=== PATIENT | female | born 1965 | race African-American/Black ===

== ENCOUNTER 2018-09-13 20:55 | Emergency (ER) | payer OTHER ==
[2018-09-13 23:55] LABS: ADD MAN DIFF? NO
[2018-09-14 00:03] LABS: BASOPHILS % 0.3 % (0.0-2.0); EOSINOPHILS # 0.3 10^3/ul (0.0-0.5); EOSINOPHILS % 3.8 % (0.0-7.0); HEMATOCRIT 38.5 % (37.0-47.0); HEMOGLOBIN 11.9 g/dl (12.0-16.0); LYMPHOCYTES # 2.5 10^3/ul (0.8-2.9); LYMPHOCYTES % 36.8 % (15.0-51.0); MEAN CORPUSCULAR HEMOGLOBIN 23.8 pg (29.0-33.0); MEAN CORPUSCULAR HGB CONC 30.9 g/dl (32.0-37.0); MEAN CORPUSCULAR VOLUME 76.8 fl (82.0-101.0); MEAN PLATELET VOLUME 9.1 fl (7.4-10.4); MONOCYTE # 0.7 10^3/ul (0.3-0.9); MONOCYTES % 9.8 % (0.0-11.0); NEUTROPHIL # 3.4 10^3/ul (1.6-7.5); NEUTROPHILS % 49.2 % (39.0-77.0); PLATELET COUNT 268 10^3/UL (140-415); RED BLOOD COUNT 5.01 10^6/ul (4.20-5.40); RED CELL DISTRIBUTION WIDTH 16.8 % (11.5-14.5)
[2018-09-14 00:03] LABS: WHITE BLOOD COUNT 6.9 10^3/ul (4.8-10.8)
[2018-09-14 00:27] LABS: ANION GAP 8 (5-13); BLOOD UREA NITROGEN 12 mg/dl (7-20); CALCIUM 9.6 mg/dl (8.4-10.2); CARBON DIOXIDE 26 mmol/L (21-31); CHLORIDE 106 mmol/L (97-110); CREATININE 0.59 mg/dl (0.44-1.00); Estimated GFR > 60 mL/min (>60); GLUCOSE 120 mg/dl (70-220); POTASSIUM 3.9 mmol/L (3.5-5.1); SODIUM 140 mmol/L (135-144)
[2018-09-14 00:38] LABS: TROPONIN-I < 0.012 ng/ml (0.000-0.120)
== END 2018-09-14 01:20 | disposition home or self-care (01) ==
LOC: E/R 20:55
DX: R07.9 Chest pain, unspecified (principal); I10 Essential (primary) hypertension; D50.9 Iron deficiency anemia, unspecified
CPT/HCPCS: 36415; 71045; 80048; 84484; 85025; 93005; 99285-25

== ENCOUNTER 2019-02-14 05:44 | Emergency (ER) | payer OTHER ==
[2019-02-14] MEDS: LIDOCAINE/MYLANTA 40 ML BTL PO ×2 (06:23→06:38)
[2019-02-14] MEDS: SOD CHLORIDE 0.9% 1,000 ML IV (06:35)
[2019-02-14] MEDS: ONDANSETRON 4 MG INJ IV (06:35)
[2019-02-14] MEDS: BELLADONNA/PHENOBARBITAL TAB PO (06:36)
[2019-02-14] MEDS: KETOROLAC 15 MG INJ IV (06:36)
[2019-02-14 06:53] LABS: ADD MAN DIFF? NO
[2019-02-14 06:54] LABS: WHITE BLOOD COUNT 9.5 10^3/ul (4.8-10.8)
[2019-02-14 06:54] LABS: BASOPHILS % 0.2 % (0.0-2.0); EOSINOPHILS % 0.3 % (0.0-7.0); HEMATOCRIT 39.7 % (37.0-47.0); HEMOGLOBIN 12.4 g/dl (12.0-16.0); LYMPHOCYTES # 1.9 10^3/ul (0.8-2.9); LYMPHOCYTES % 20.1 % (15.0-51.0); MEAN CORPUSCULAR HEMOGLOBIN 24.3 pg (29.0-33.0); MEAN CORPUSCULAR HGB CONC 31.2 g/dl (32.0-37.0); MEAN CORPUSCULAR VOLUME 77.7 fl (82.0-101.0); MONOCYTE # 0.9 10^3/ul (0.3-0.9); MONOCYTES % 9.8 % (0.0-11.0); NEUTROPHIL # 6.5 10^3/ul (1.6-7.5); NEUTROPHILS % 69.2 % (39.0-77.0); PLATELET COUNT 304 10^3/UL (140-415); RED BLOOD COUNT 5.11 10^6/ul (4.20-5.40); RED CELL DISTRIBUTION WIDTH 17.9 % (11.5-14.5)
[2019-02-14 07:02] LABS: ADD UMIC YES; UR ASCORBIC ACID NEGATIVE (NEGATIVE); UR BACTERIA FEW /HPF (NONE SEEN); UR BILIRUBIN (Dip) NEGATIVE (NEGATIVE); UR BLOOD (Dip) 2+ mg/dL (NEGATIVE); UR CLARITY CLOUDY (CLEAR); UR COLOR YELLOW (YELLOW); UR GLUCOSE (Dip) NEGATIVE (NEGATIVE); UR KETONES (Dip) 2+ mg/dL (NEGATIVE); UR LEUKOCYTE ESTERASE (Dip) NEGATIVE Leu/ul (NEGATIVE); UR MUCUS FEW /HPF (NONE SEEN); UR NITRITE (Dip) NEGATIVE (NEGATIVE); UR RBC 6 /HPF (0-5); UR SPECIFIC GRAVITY (Dip) 1.023 (1.003-1.030); UR SQUAMOUS EPITHELIAL CELL MODERATE /HPF (FEW); UR TOTAL PROTEIN (Dip) 1+ mg/dl (NEGATIVE); UR UROBILINOGEN (Dip) 2+ mg/dL (NEGATIVE); UR WBC 5 /HPF (0-5)
[2019-02-14 07:15] LABS: ALANINE AMINOTRANSFERASE 15 IU/L (13-69); ALBUMIN 4.2 g/dl (3.3-4.9); ALBUMIN/GLOBULIN RATIO 1.07; ALKALINE PHOSPHATASE 80 IU/L (42-121); ANION GAP 14 (5-13); ASPARTATE AMINO TRANSFERASE 15 IU/L (15-46); BILIRUBIN,INDIRECT 0.5 mg/dl (0-1.1); BILIRUBIN,TOTAL 0.5 mg/dl (0.2-1.3); BLOOD UREA NITROGEN 6 mg/dl (7-20); CALCIUM 9.1 mg/dl (8.4-10.2); CARBON DIOXIDE 26 mmol/L (21-31); CHLORIDE 102 mmol/L (97-110); CREATININE 0.49 mg/dl (0.44-1.00); Estimated GFR > 60 mL/min (>60); GLUCOSE 136 mg/dl (70-220); LIPASE 60 U/L (23-300); POTASSIUM 3.2 mmol/L (3.5-5.1); SODIUM 142 mmol/L (135-144); TOTAL PROTEIN 8.1 g/dl (6.1-8.1)
[2019-02-14 07:26] LABS: TROPONIN-I < 0.012 ng/ml (0.000-0.120)
== END 2019-02-14 08:28 | disposition home or self-care (01) ==
LOC: E/R 05:44
DX: R10.84 Generalized abdominal pain (principal); I10 Essential (primary) hypertension; E66.9 Obesity, unspecified; Z68.33 Body mass index [BMI] 33.0-33.9, adult
CPT/HCPCS: 36415; 80053; 81001; 83690; 84484; 85025; 96374; 96375; 99284-25

== ENCOUNTER 2019-02-16 17:48 | Inpatient (IN) | payer OTHER ==
[2019-02-16 18:46] LABS: ADD MAN DIFF? NO
[2019-02-16 18:48] LABS: BASOPHILS % 0.2 % (0.0-2.0); EOSINOPHILS % 0.2 % (0.0-7.0); HEMATOCRIT 30.3 % (37.0-47.0); HEMOGLOBIN 9.3 g/dl (12.0-16.0); LYMPHOCYTES # 1.6 10^3/ul (0.8-2.9); LYMPHOCYTES % 11.5 % (15.0-51.0); MEAN CORPUSCULAR HEMOGLOBIN 23.8 pg (29.0-33.0); MEAN CORPUSCULAR HGB CONC 30.7 g/dl (32.0-37.0); MEAN CORPUSCULAR VOLUME 77.7 fl (82.0-101.0); MEAN PLATELET VOLUME 8.7 fl (7.4-10.4); MONOCYTE # 1.1 10^3/ul (0.3-0.9); MONOCYTES % 7.9 % (0.0-11.0); NEUTROPHIL # 11.2 10^3/ul (1.6-7.5); NEUTROPHILS % 79.6 % (39.0-77.0); PLATELET COUNT 266 10^3/UL (140-415); RED CELL DISTRIBUTION WIDTH 17.3 % (11.5-14.5)
[2019-02-16 18:48] LABS: WHITE BLOOD COUNT 14.1 10^3/ul (4.8-10.8)
[2019-02-16 19:07] LABS: ALANINE AMINOTRANSFERASE 17 IU/L (13-69); ALBUMIN 3.2 g/dl (3.3-4.9); ALBUMIN/GLOBULIN RATIO 0.96; ALKALINE PHOSPHATASE 47 IU/L (42-121); ANION GAP 9 (5-13); ASPARTATE AMINO TRANSFERASE 14 IU/L (15-46); BILIRUBIN,INDIRECT 0.3 mg/dl (0-1.1); BILIRUBIN,TOTAL 0.3 mg/dl (0.2-1.3); BLOOD UREA NITROGEN 26 mg/dl (7-20); CARBON DIOXIDE 29 mmol/L (21-31); CHLORIDE 105 mmol/L (97-110); Estimated GFR > 60 mL/min (>60); GLUCOSE 164 mg/dl (70-220); INR 1.06; PARTIAL THROMBOPLASTIN TIME 21.9 Sec (23.0-35.0); POTASSIUM 3.2 mmol/L (3.5-5.1); PROTIME 13.9 Sec (11.9-14.9); PT RATIO 1.1; SODIUM 143 mmol/L (135-144); TOTAL PROTEIN 6.5 g/dl (6.1-8.1)
[2019-02-16 19:17] LABS: TROPONIN-I < 0.012 ng/ml (0.000-0.120)
[2019-02-16] MEDS: SOD CHLORIDE 0.9% 500 ML IV (19:35)
[2019-02-16] MEDS ORDERED: NITROGLYCERIN (SL) 0.4 MG TAB SL (21:30)
[2019-02-16] MEDS ORDERED: BISACODYL (EC) 5 MG TAB PO (21:30)
[2019-02-16] MEDS ORDERED: ACETAMINOPHEN 325 MG TAB PO ×2 (21:30)
[2019-02-16] MEDS ORDERED: NACL 0.9% 3 ML SYG IV (21:30)
[2019-02-16] MEDS ORDERED: DOCUSATE SODIUM 100 MG CAP PO (21:30)
[2019-02-16] MEDS ORDERED: ONDANSETRON 4 MG INJ IV (21:30)
[2019-02-16] MEDS: SOD CHLORIDE 0.9% 100 ML (21:37)
[2019-02-16] MEDS: IOHEXOL 300MG/ML 150 ML BTL (21:37)
[2019-02-16 21:53] LABS: MAGNESIUM 1.2 mg/dl (1.7-2.5)
[2019-02-16] MEDS: POTASSIUM CHLORIDE (SR) 20 MEQ TAB PO (21:58)
[2019-02-16] MEDS: SOD CHLORIDE 0.9% 1,000 ML IV (22:59)
[2019-02-16] MEDS ORDERED: IOHEXOL 14.3 MG(I)/ML (ADULT) BTL PO (23:30)
[2019-02-16] MEDS: morphine 2 MG INJ IV (23:58)
[2019-02-17] MEDS: SOD CHLORIDE 0.9% 100 ML (00:50)
[2019-02-17] MEDS: IOHEXOL 300MG/ML 150 ML BTL (00:50)
[2019-02-17] MEDS: MAGNESIUM SULFATE 3 GM in DEXTROSE 5% 100 ML IVPB (00:57)
[2019-02-17] MEDS: morphine 2 MG INJ IV ×3 (05:01→19:32)
[2019-02-17 06:26] LABS: ADD MAN DIFF? NO
[2019-02-17 06:32] LABS: WHITE BLOOD COUNT 11.5 10^3/ul (4.8-10.8)
[2019-02-17 06:32] LABS: BASOPHILS % 0.2 % (0.0-2.0); EOSINOPHILS % 0.3 % (0.0-7.0); HEMATOCRIT 27.1 % (37.0-47.0); HEMOGLOBIN 8.6 g/dl (12.0-16.0); LYMPHOCYTES # 2.1 10^3/ul (0.8-2.9); LYMPHOCYTES % 18.5 % (15.0-51.0); MEAN CORPUSCULAR HEMOGLOBIN 24.9 pg (29.0-33.0); MEAN CORPUSCULAR HGB CONC 31.7 g/dl (32.0-37.0); MEAN CORPUSCULAR VOLUME 78.6 fl (82.0-101.0); MONOCYTE # 0.9 10^3/ul (0.3-0.9); MONOCYTES % 7.7 % (0.0-11.0); NEUTROPHIL # 8.4 10^3/ul (1.6-7.5); PLATELET COUNT 272 10^3/UL (140-415); RED BLOOD COUNT 3.45 10^6/ul (4.20-5.40); RED CELL DISTRIBUTION WIDTH 17.3 % (11.5-14.5)
[2019-02-17 07:00] LABS: IRON 41 ug/dl (35-150)
[2019-02-17 07:07] LABS: HEMOGLOBIN A1C 5.8 % (0-5.9)
[2019-02-17 07:10] LABS: % IRON SATURATION 14 % SAT (22-52); ALANINE AMINOTRANSFERASE 13 IU/L (13-69); ALBUMIN 3.2 g/dl (3.3-4.9); ALKALINE PHOSPHATASE 54 IU/L (42-121); ANION GAP 8 (5-13); ASPARTATE AMINO TRANSFERASE 14 IU/L (15-46); BILIRUBIN,INDIRECT 0.3 mg/dl (0-1.1); BILIRUBIN,TOTAL 0.3 mg/dl (0.2-1.3); BLOOD UREA NITROGEN 17 mg/dl (7-20); CALCIUM 8.2 mg/dl (8.4-10.2); CARBON DIOXIDE 29 mmol/L (21-31); CHLORIDE 106 mmol/L (97-110); CHOL/HDL RATIO 4.3 RATIO; CHOLESTEROL 126 mg/dl (100-200); Estimated GFR > 60 mL/min (>60); GLUCOSE 128 mg/dl (70-220); HDL CHOLESTEROL 29 mg/dl (37-92); LDL CHOLESTEROL,CALCULATED 81 mg/dl; MAGNESIUM 2.2 mg/dl (1.7-2.5); POTASSIUM 3.4 mmol/L (3.5-5.1); SODIUM 143 mmol/L (135-144); TOTAL IRON BINDING CAPACITY 285 ug/dl (241-421); TOTAL PROTEIN 6.4 g/dl (6.1-8.1); TRIGLYCERIDES 79 mg/dl (0-149)
[2019-02-17 07:26] LABS: THYROID STIMULATING HORMONE 0.909 MIU/L (0.465-4.680)
[2019-02-17 07:30] LABS: FERRITIN 32.6 ng/ml (11.1-264.0)
[2019-02-17] MEDS: POLYETHYLENE GLYCOL 17 GM PACKET PO ×3 (08:13→09:00)
[2019-02-17] MEDS: DOCUSATE SODIUM 100 MG CAP PO ×2 (08:13→22:31)
[2019-02-17] MEDS: FAMOTIDINE 20 MG INJ IV (08:14)
[2019-02-17] MEDS: LORATADINE 10 MG TAB PO (08:14)
[2019-02-17] MEDS: ONDANSETRON 4 MG INJ IV (10:30)
[2019-02-17] MEDS: SOD CHLORIDE 0.9% 1,000 ML IV (10:30)
[2019-02-17 10:46] LABS: ADD MAN DIFF? NO
[2019-02-17 10:47] LABS: BASOPHILS % 0.2 % (0.0-2.0); EOSINOPHILS # 0.1 10^3/ul (0.0-0.5); EOSINOPHILS % 0.4 % (0.0-7.0); HEMATOCRIT 26.2 % (37.0-47.0); HEMOGLOBIN 8.3 g/dl (12.0-16.0); LYMPHOCYTES # 2.1 10^3/ul (0.8-2.9); LYMPHOCYTES % 17.8 % (15.0-51.0); MEAN CORPUSCULAR HEMOGLOBIN 25.2 pg (29.0-33.0); MEAN CORPUSCULAR HGB CONC 31.7 g/dl (32.0-37.0); MEAN CORPUSCULAR VOLUME 79.4 fl (82.0-101.0); MEAN PLATELET VOLUME 8.8 fl (7.4-10.4); MONOCYTE # 0.8 10^3/ul (0.3-0.9); MONOCYTES % 6.7 % (0.0-11.0); NEUTROPHIL # 8.9 10^3/ul (1.6-7.5); NEUTROPHILS % 74.5 % (39.0-77.0); PLATELET COUNT 255 10^3/UL (140-415); RED CELL DISTRIBUTION WIDTH 17.4 % (11.5-14.5)
[2019-02-17 10:47] LABS: WHITE BLOOD COUNT 11.9 10^3/ul (4.8-10.8)
[2019-02-17] MEDS: POTASSIUM CHLORIDE 100 ML IVPB ×2 (11:51→12:30)
[2019-02-17] MEDS: POTASSIUM CHLORIDE (SR) 20 MEQ TAB PO (13:16)
[2019-02-17] MEDS: NA PHOSPHATE/BIPHOS 133 ML ENEMA PR (15:49)
[2019-02-17] MEDS: BENAZEPRIL 10 MG TAB PO (15:49)
[2019-02-17 17:13] LABS: WHITE BLOOD COUNT 11.3 10^3/ul (4.8-10.8)
[2019-02-17 17:13] LABS: ADD MAN DIFF? NO; BASOPHILS % 0.3 % (0.0-2.0); EOSINOPHILS % 0.4 % (0.0-7.0); HEMATOCRIT 26.7 % (37.0-47.0); HEMOGLOBIN 8.2 g/dl (12.0-16.0); LYMPHOCYTES % 17.8 % (15.0-51.0); MEAN CORPUSCULAR HEMOGLOBIN 24.3 pg (29.0-33.0); MEAN CORPUSCULAR HGB CONC 30.7 g/dl (32.0-37.0); MEAN CORPUSCULAR VOLUME 79.2 fl (82.0-101.0); MEAN PLATELET VOLUME 8.3 fl (7.4-10.4); MONOCYTE # 0.7 10^3/ul (0.3-0.9); MONOCYTES % 6.6 % (0.0-11.0); NEUTROPHIL # 8.4 10^3/ul (1.6-7.5); NEUTROPHILS % 74.5 % (39.0-77.0); PLATELET COUNT 234 10^3/UL (140-415); RED BLOOD COUNT 3.37 10^6/ul (4.20-5.40); RED CELL DISTRIBUTION WIDTH 17.5 % (11.5-14.5)
[2019-02-17 18:47] LABS: AMYLASE 49 U/L (11-123)
[2019-02-17 18:47] LABS: LIPASE 182 U/L (23-300)
[2019-02-17 23:40] LABS: ADD MAN DIFF? NO
[2019-02-17 23:43] LABS: BASOPHILS % 0.2 % (0.0-2.0); EOSINOPHILS # 0.1 10^3/ul (0.0-0.5); EOSINOPHILS % 1.1 % (0.0-7.0); HEMATOCRIT 25.9 % (37.0-47.0); LYMPHOCYTES # 2.5 10^3/ul (0.8-2.9); LYMPHOCYTES % 22.6 % (15.0-51.0); MEAN CORPUSCULAR HEMOGLOBIN 24.7 pg (29.0-33.0); MEAN CORPUSCULAR HGB CONC 30.9 g/dl (32.0-37.0); MEAN CORPUSCULAR VOLUME 79.9 fl (82.0-101.0); MEAN PLATELET VOLUME 8.9 fl (7.4-10.4); MONOCYTE # 0.8 10^3/ul (0.3-0.9); MONOCYTES % 7.2 % (0.0-11.0); NEUTROPHIL # 7.6 10^3/ul (1.6-7.5); NEUTROPHILS % 68.6 % (39.0-77.0); PLATELET COUNT 240 10^3/UL (140-415); RED BLOOD COUNT 3.24 10^6/ul (4.20-5.40); RED CELL DISTRIBUTION WIDTH 17.6 % (11.5-14.5)
[2019-02-17 23:43] LABS: WHITE BLOOD COUNT 11.1 10^3/ul (4.8-10.8)
[2019-02-18] MEDS: SOD CHLORIDE 0.9% 1,000 ML IV ×2 (00:43→14:08)
[2019-02-18 06:31] LABS: ADD MAN DIFF? NO
[2019-02-18 06:47] LABS: WHITE BLOOD COUNT 10.2 10^3/ul (4.8-10.8)
[2019-02-18 06:47] LABS: BASOPHILS % 0.2 % (0.0-2.0); EOSINOPHILS # 0.2 10^3/ul (0.0-0.5); EOSINOPHILS % 1.7 % (0.0-7.0); HEMATOCRIT 25.9 % (37.0-47.0); HEMOGLOBIN 8.1 g/dl (12.0-16.0); LYMPHOCYTES # 1.7 10^3/ul (0.8-2.9); LYMPHOCYTES % 16.8 % (15.0-51.0); MEAN CORPUSCULAR HGB CONC 31.3 g/dl (32.0-37.0); MEAN CORPUSCULAR VOLUME 79.9 fl (82.0-101.0); MEAN PLATELET VOLUME 8.7 fl (7.4-10.4); MONOCYTE # 0.8 10^3/ul (0.3-0.9); MONOCYTES % 7.9 % (0.0-11.0); NEUTROPHIL # 7.4 10^3/ul (1.6-7.5); PLATELET COUNT 248 10^3/UL (140-415); RED BLOOD COUNT 3.24 10^6/ul (4.20-5.40); RED CELL DISTRIBUTION WIDTH 17.4 % (11.5-14.5)
[2019-02-18 07:02] LABS: ALANINE AMINOTRANSFERASE 12 IU/L (13-69); ALBUMIN 3.2 g/dl (3.3-4.9); ALKALINE PHOSPHATASE 54 IU/L (42-121); ANION GAP 9 (5-13); ASPARTATE AMINO TRANSFERASE 17 IU/L (15-46); BILIRUBIN,INDIRECT 0.3 mg/dl (0-1.1); BILIRUBIN,TOTAL 0.3 mg/dl (0.2-1.3); BLOOD UREA NITROGEN 10 mg/dl (7-20); CALCIUM 8.5 mg/dl (8.4-10.2); CARBON DIOXIDE 29 mmol/L (21-31); CHLORIDE 106 mmol/L (97-110); CREATININE 0.48 mg/dl (0.44-1.00); Estimated GFR > 60 mL/min (>60); GLUCOSE 119 mg/dl (70-220); POTASSIUM 3.5 mmol/L (3.5-5.1); SODIUM 144 mmol/L (135-144); TOTAL PROTEIN 6.4 g/dl (6.1-8.1)
[2019-02-18] MEDS: DOCUSATE SODIUM 100 MG CAP PO ×2 (08:47→20:41)
[2019-02-18] MEDS: LORATADINE 10 MG TAB PO (08:47)
[2019-02-18] MEDS: POLYETHYLENE GLYCOL 17 GM PACKET PO (08:47)
[2019-02-18] MEDS: FAMOTIDINE 20 MG INJ IV (09:04)
[2019-02-18] MEDS: BENAZEPRIL 10 MG TAB PO (09:05)
[2019-02-18] MEDS: PROPOFOL 40 ML (16:05)
[2019-02-18] MEDS: ONDANSETRON 4 MG INJ IV (22:43)
[2019-02-19 05:03] LABS: ADD MAN DIFF? NO
[2019-02-19 05:14] LABS: WHITE BLOOD COUNT 10.1 10^3/ul (4.8-10.8)
[2019-02-19 05:15] LABS: BASOPHILS % 0.2 % (0.0-2.0); EOSINOPHILS # 0.4 10^3/ul (0.0-0.5); EOSINOPHILS % 3.9 % (0.0-7.0); HEMATOCRIT 25.2 % (37.0-47.0); HEMOGLOBIN 7.9 g/dl (12.0-16.0); LYMPHOCYTES # 1.7 10^3/ul (0.8-2.9); LYMPHOCYTES % 16.6 % (15.0-51.0); MEAN CORPUSCULAR HEMOGLOBIN 25.5 pg (29.0-33.0); MEAN CORPUSCULAR HGB CONC 31.3 g/dl (32.0-37.0); MEAN CORPUSCULAR VOLUME 81.3 fl (82.0-101.0); MONOCYTE # 0.7 10^3/ul (0.3-0.9); MONOCYTES % 6.6 % (0.0-11.0); NEUTROPHIL # 7.3 10^3/ul (1.6-7.5); NEUTROPHILS % 72.4 % (39.0-77.0); PLATELET COUNT 247 10^3/UL (140-415); RED CELL DISTRIBUTION WIDTH 17.5 % (11.5-14.5)
[2019-02-19 05:27] LABS: ALANINE AMINOTRANSFERASE 25 IU/L (13-69); ALBUMIN 3.2 g/dl (3.3-4.9); ALBUMIN/GLOBULIN RATIO 0.96; ALKALINE PHOSPHATASE 51 IU/L (42-121); ANION GAP 6 (5-13); ASPARTATE AMINO TRANSFERASE 16 IU/L (15-46); BILIRUBIN,INDIRECT 0.3 mg/dl (0-1.1); BILIRUBIN,TOTAL 0.3 mg/dl (0.2-1.3); BLOOD UREA NITROGEN 7 mg/dl (7-20); CALCIUM 8.4 mg/dl (8.4-10.2); CARBON DIOXIDE 29 mmol/L (21-31); CHLORIDE 104 mmol/L (97-110); CREATININE 0.51 mg/dl (0.44-1.00); Estimated GFR > 60 mL/min (>60); GLUCOSE 114 mg/dl (70-220); POTASSIUM 3.3 mmol/L (3.5-5.1); SODIUM 139 mmol/L (135-144); TOTAL PROTEIN 6.5 g/dl (6.1-8.1)
[2019-02-19] MEDS: FAMOTIDINE 20 MG INJ IV (09:11)
[2019-02-19] MEDS: LORATADINE 10 MG TAB PO (09:11)
[2019-02-19] MEDS: POLYETHYLENE GLYCOL 17 GM PACKET PO ×4 (09:12→10:59)
[2019-02-19] MEDS: DOCUSATE SODIUM 100 MG CAP PO (09:12)
[2019-02-19] MEDS: BENAZEPRIL 10 MG TAB PO (09:12)
[2019-02-19] MEDS: SOD FERRIC GLUC COMPLX 125 MG in SOD CHLORIDE 0.9% 100 ML IVPB (15:51)
[2019-02-19] MEDS: POTASSIUM CHLORIDE (SR) 20 MEQ TAB PO (15:51)
== END 2019-02-19 18:20 | disposition home or self-care (01) | DRG 812 ==
LOC: TEL 02-18 10:48 → MS1 02-19 01:03 → E/R 17:48 → TEL 21:11
PROC: 0DB58ZX Excision of Esophagus, Via Natural or Artificial Opening Endoscopic, Diagnostic (ICD-10-PCS; principal; 2019-02-18 14:30)
PROC: 0DB68ZX Excision of Stomach, Via Natural or Artificial Opening Endoscopic, Diagnostic (ICD-10-PCS; 2019-02-18 14:30)
DX: D50.9 Iron deficiency anemia, unspecified (principal); K22.10 Ulcer of esophagus without bleeding; E86.0 Dehydration; I95.9 Hypotension, unspecified; R55 Syncope and collapse; Z72.0 Tobacco use; R11.2 Nausea with vomiting, unspecified; R10.13 Epigastric pain; E87.6 Hypokalemia; I10 Essential (primary) hypertension; D72.829 Elevated white blood cell count, unspecified; E83.42 Hypomagnesemia; K59.00 Constipation, unspecified; Z98.84 Bariatric surgery status; K25.9 Gastric ulcer, unspecified as acute or chronic, without hemorrhage or perforation; K21.0 Gastro-esophageal reflux disease with esophagitis
CPT/HCPCS: 36415; 70450; 70460; 71045; 74178; 74181; 80053; 80061; 82150; 82306; 82728; 83036; 83540; 83690; 83735; 84443; 84484; 85025; 85610; 85730; 88305; 88312; 88313; 93005; 93306; 97162; 99285-25; G0378

== ENCOUNTER 2019-03-29 12:41 | Emergency (ER) | payer OTHER ==
[2019-03-29] MEDS: ACETAMINOPHEN 325 MG TAB PO (14:02)
[2019-03-29] MEDS: BENAZEPRIL 10 MG TAB PO (14:29)
== END 2019-03-29 14:33 | disposition home or self-care (01) ==
LOC: E/R 12:41
DX: I16.0 Hypertensive urgency (principal); Z76.0 Encounter for issue of repeat prescription
CPT/HCPCS: 99283